=== PATIENT | male | born 1955 ===

== ENCOUNTER → 2024-08-19 07:50 | Outpatient (REF) | payer OTHER, SELFPAY | LOC: RCS 07:50 | PROVIDERS: ATTENDING PHYSICIAN Internal Medicine; FAMILY PHYSICIAN Family Medicine | DX: I10 Essential (primary) hypertension (principal); Z95.1 Presence of aortocoronary bypass graft; I25.10 Atherosclerotic heart disease of native coronary artery without angina pectoris; I45.4 Nonspecific intraventricular block; I35.1 Nonrheumatic aortic (valve) insufficiency; R06.83 Snoring | CPT/HCPCS: 93306 ==